=== PATIENT | male | born 1950 ===

== ENCOUNTER 2020-09-08 08:04 | Outpatient (CLI) | payer OTHER | END 2020-09-08 08:05 | disposition home or self-care (01) | LOC: NUCLEAR 08:04 | PROVIDERS: ATTEND Internal Medicine | DX: C18.7 Malignant neoplasm of sigmoid colon (principal) | CPT/HCPCS: 78815; A9552 ==

== ENCOUNTER 2021-02-11 07:12 | Outpatient (CLI) | payer OTHER | END 2021-02-11 07:29 | disposition home or self-care (01) | LOC: TOM 07:12 | PROVIDERS: ATTEND Internal Medicine | DX: K57.90 Diverticulosis of intestine, part unspecified, without perforation or abscess without bleeding (principal); N40.0 Benign prostatic hyperplasia without lower urinary tract symptoms; R10.84 Generalized abdominal pain | CPT/HCPCS: 71260; 74177; Q9965 ==

== ENCOUNTER 2021-06-25 08:53 | Outpatient (CLI) | payer OTHER | END 2021-06-25 12:47 | disposition home or self-care (01) | LOC: MRI 08:53 | DX: C20 Malignant neoplasm of rectum (principal) | CPT/HCPCS: 72197; Q9965 ==

== ENCOUNTER 2021-07-02 07:40 | Outpatient (CLI) | payer OTHER | END 2021-07-02 07:48 | disposition home or self-care (01) | LOC: TOM 07:40 | DX: C20 Malignant neoplasm of rectum (principal) | CPT/HCPCS: 71260; 74177; Q9965 ==